=== PATIENT | female | born 1975 | race Caucasian/White ===

== ENCOUNTER 2017-12-23 11:42 | Emergency (ER) | payer MEDICAID, SELFPAY ==
[2017-12-23 11:43] VITALS: BP 97/67; PULSE 70; RESP 18; TEMP 36.6; O2SAT 98; BMI 28.3
--- NOTE | 2017-12-23 12:06 | ED.DCSUM_ITS ---
- ER Visit Summary Date of Service: 12/23/17 Chief Complaint: [Herpes outbreak] History of Present Illness: The patient is a 42 F [to the emergency department with complaint of a herpes outbreak that started about a week ago. Patient states that she has itching and painful lesions that peters when she urinates. Patient has had these multiple times in the past. Patient recently moved to [facility] and has no primary care physician in the area. Patient normally takes acyclovir and is requesting a prescription for acyclovir. As any fevers.] Physical Examination: [HEENT-PERRLA, EOMI. Cranial nerves II through XII grossly intact. TMs clear. Mucous membranes moist. No adenopathy. Cardiovascular-regular rate and rhythm without murmur or ectopy Lungs-clear to auscultation, chest wall stable without crepitus or subcu emphysema Abdomen-normoactive bowel sounds, soft, nontender, no rebound or rigidity, no peritoneal signs. exam-patient refused Extremities-intact ?4, normal range of motion, normal pulses, atraumatic] Test Results: [None indicated] Emergency Department Course and Treatment: [Patient will be given a prescription for acyclovir] Treatment Plan: [Treat with acyclovir and give referral to primary care physician merchandising execution manager as well as PROGRAM ANALYST on-call] Disposition: [Discharged home in stable condition] Impression: [Herpes recurrence ] This note was generated with Scrip-t dictation software. It may contain incorrect words, spelling, and punctuation that were not noted in review of the chart prior to signing ED Disposition - Plan for ED Patient: Chief Complaint: Med Refill Referrals: Care Physician,No Primary [Primary Care Provider] -
--- NOTE | 2017-12-23 12:06 | ED.DEP ---
ED Disposition - Plan for ED Patient: Chief Complaint: Med Refill Instructions: Med Refill, Herpes Prescriptions: Acyclovir 800 mg PO 5X/DAY #25 tab Referrals: Care Physician,No Primary [Primary Care Provider] - Josep Hager MD [STAFF PHYSICIAN] - Ellen Reyes MD [STAFF PHYSICIAN] - 3-5 Days
== END 2017-12-23 12:26 | disposition home or self-care (01) ==
LOC: ED 12:05
PROVIDERS: Emergency Provider Emergency Medicine
DX: A60.00 Herpesviral infection of urogenital system, unspecified (principal); J44.9 Chronic obstructive pulmonary disease, unspecified; M79.7 Fibromyalgia; Z72.0 Tobacco use
CPT/HCPCS: 99282

== ENCOUNTER 2018-01-13 01:13 | Emergency (ER) | payer MEDICAID, SELFPAY ==
[2018-01-13 01:14] VITALS: BP 105/73; PULSE 65; RESP 17; TEMP 36.8; O2SAT 100; BMI 27.4
[2018-01-13] MEDS: Meclizine 12.5 MG Tablet PO (01:45)
[2018-01-13] MEDS: Ondansetron ODT 4 MG Tablet PO (01:45)
[2018-01-13 01:47] VITALS: BP 89/60; PULSE 63; RESP 17; O2SAT 98
--- NOTE | 2018-01-13 01:48 | ED.DEP ---
ED Disposition - Plan for ED Patient: Chief Complaint: Med Refill Instructions: ED Vertigo Unspecified Prescriptions: Ondansetron [Zofran Odt] 4 mg PO Q8H PRN PRN #10 tablet PRN Reason: Nausea Meclizine HCl [Antivert] 25 mg PO 4X/DAY PRN PRN #30 tablet PRN Reason: Dizziness Referrals: Darline Brody MD [STAFF PHYSICIAN] - 5-7 Days
--- NOTE | 2018-01-13 01:49 | ED.DCSUM_ITS ---
- ER Visit Summary Date of Service: 01/13/18 Chief Complaint: [Vertigo] History of Present Illness: The patient is a 42 F [who presents the emergency department with vertigo. She states this is a chronic problem for her. She has been out of her meclizine and Zofran. She has been unable to obtain a new doctor since moving to the area. She states when she lies back or turns to her right side she gets room spinning. This is very normal for her. She has no other additional neurologic symptoms. No fevers or chills.] Physical Examination: [] Afebrile vital signs within acceptable limits WN WD NAD PERRL EOMI MMM NECK supple and nontender, no masses RRR no murmur rub or gallop, no peripheral edema, symmetric radial pulses CTAB no respiratory distress ABDOMEN is soft and nontender, normal bowel sounds, no distension, no rebound or guarding SKIN is warm and dry no rashes Alert and Oriented x3, CN II-XII in tact, no motor or sensory deficits, gait normal patient does complain of room spinning when lying back or turning to her right side. I am unable to assess for nystagmus as the patient closes her eyes and feels very nauseated No lymphadenopathy Test Results: [] Emergency Department Course and Treatment: [Patient was given meclizine and Zofran in the emergency department. She will be given a prescription for the same. She was given a referral to her primary care doctor and encouraged to call [facility] for referrals to the primary doctors. She was given precautions for which to return] Treatment Plan: [] Disposition: [Discharge] Impression: [Vertigo] This note was generated with Ini3 Digital dictation software. It may contain incorrect words, spelling, and punctuation that were not noted in review of the chart prior to signing ED Disposition - Plan for ED Patient: Chief Complaint: Med Refill Referrals: Care Physician,No Primary [Primary Care Provider] -
== END 2018-01-13 02:10 | disposition home or self-care (01) ==
PROVIDERS: Emergency Provider Emergency Medicine
DX: R42 Dizziness and giddiness (principal); R11.0 Nausea; J44.9 Chronic obstructive pulmonary disease, unspecified; E03.9 Hypothyroidism, unspecified; Z79.899 Other long term (current) drug therapy; Z72.0 Tobacco use
CPT/HCPCS: 99283

== ENCOUNTER → 2018-02-24 11:39 | Outpatient (CLI) | payer MEDICAID, SELFPAY ==
[2018-02-24 18:56] LABS: Chlamydia Trachomatis by PCR Negative (Negative); Neisserai gonorrhoeae by PCR Negative (Negative); Probe Check PASS; Sample Adequacy Control PASS; Specimen Processing Control PASS
== END ==
PROVIDERS: Visit Provider Obstetrics & Gynecology
DX: Z11.3 Encounter for screening for infections with a predominantly sexual mode of transmission (principal)
CPT/HCPCS: 87491; 87591

== ENCOUNTER 2018-04-15 17:30 | Emergency (ER) | payer MEDICAID, SELFPAY ==
--- NOTE | 2018-04-15 17:30 | DT_ITS ---
This patient was seen during an EMR downtime April 13, 2018 - April 20, 2018. This patient may have a combination of paper and electronic documentation or all paper documentation. All documentation is viewable within the e-chart portion of [employer] for each patient visit.
== END 2018-04-15 18:28 | disposition home or self-care (01) ==
LOC: ED 04-17 12:21
PROVIDERS: Emergency Provider Emergency Medicine
DX: J06.9 Acute upper respiratory infection, unspecified (principal); M35.00 Sjogren syndrome, unspecified; E06.3 Autoimmune thyroiditis; J44.9 Chronic obstructive pulmonary disease, unspecified; F17.210 Nicotine dependence, cigarettes, uncomplicated
CPT/HCPCS: 99282

== ENCOUNTER → 2018-04-21 15:32 | Outpatient (CLI) | payer MEDICAID, SELFPAY ==
[2018-04-21 17:38] LABS: Absolute Lymphocyte Count 3.51 X10^3/ul (0.83-4.51); Absolute Neutrophil Count 5.8 X10^3/uL (2.0-7.7); Basophil# 0.02 X10^3/uL; Basophil% 0.2 % (0-1); Eosinophil# 0.21 X10^3/uL; Hematocrit 42.9 % (37-47); Hemoglobin 14.2 g/dl (12.0-15.0); Lymphocyte # 3.51 X10^3/ul (4.0); Lymphocyte % 33.3 % (19-41); Mean Corp Hgb Conc 33.1 g/gl (32-36); Mean Corpuscular Volume 87.6 fL (81-99); Mean Platelet Vol. 10.2 fl (6.2-12.0); Monocyte# 0.91 X10^3/uL; Monocyte% 8.6 % (0-10); Neutrophil # 5.78 X10^3/uL (2.7-7.7); Platelet Count 273 K/mm3 (150-450); RBC Distribution Width CV 12.5 % (11.6-14.6); White Blood Count 10.5 K/mm3 (4.4-11.0)
[2018-04-21 17:44] LABS: POSITIVE COUNT NO; POSITIVE DIFFERENTIAL NO; POSITIVE MORPHOLOGY NO
[2018-04-21 18:18] LABS: ALB/GLOB Ratio 1.1 RATIO (0.9-2.4); AST(SGOT) 20 U/L (15-37); Alanine Aminotransfer ALT/SGPT 46 U/L (13-56); Albumin, Serum 3.8 g/dL (3.2-5.0); Alkaline Phosphatase 114 U/L (45-117); Anion Gap 9 (5-15); BUN 18 mg/dL (7-18); BUN/Creat Ratio 20.7 RATIO (10-20); Calcium,Total 8.6 mg/dL (8.5-10.1); Chloride 106 mmol/L (98-107); Creatinine, Serum 0.87 mg/dL (0.55-1.02); EST Glomerular Filtration Rate 76 mL/min (>60); Est Glom Filt Rate - Afr Amer 92 mL/min (>60); Globulin 3.5 g/dL (2.2-4.2); Glucose 90 mg/dL (74-106); Potassium 3.8 mmol/L (3.5-5.1); Protein, Total 7.3 g/dL (6.4-8.2); Sodium Level 144 mmol/L (136-145)
== END ==
PROVIDERS: Family Provider Family Medicine; PCP Family Medicine; Visit Provider Family Medicine
DX: K21.9 Gastro-esophageal reflux disease without esophagitis (principal); F17.200 Nicotine dependence, unspecified, uncomplicated
CPT/HCPCS: 36415; 80053; 85025

== ENCOUNTER 2018-04-21 23:41 | Emergency (ER) | payer MEDICAID, SELFPAY ==
[2018-04-21 23:42] VITALS: BP 102/75; PULSE 55; RESP 16; TEMP 36.1; O2SAT 100; BMI 29.4
--- NOTE | 2018-04-22 00:31 | ED.VISSUMM ---
- ER Visit Summary Date of Service: 04/22/18 Chief Complaint: Right groin pain History of Present Illness: The patient is a 42 F presenting for evaluation secondary to right groin pain. Patient states that today just prior to arrival she was going from a seated to standing position and felt a sudden onset of severe pain in her right groin. She describes this as a sharp stabbing throbbing type pain is worse with movement and with pressure. No radiation of the pain. No numbness or weakness associated with this. No prior similar symptoms in the past. No radiation to the back, no bowel or bladder incontinence, she denies any urinary symptoms such as dysuria or hematuria denies any abdominal pain associated with this. Review of systems otherwise negative. Physical Examination: Well-nourished female no acute distress. Vital signs within normal limits. Head normocephalic. Moist mucous membranes. Neck supple. Heart regular rate and rhythm lungs sounds clear. Abdomen soft nontender nondistended normal bowel sounds no evidence of palpable abdominal masses or pulsatile mass. Lower extremity exam shows tenderness palpation in the right groin region with soft compartments throughout the thigh and calf. 2+ DP and PT pulses that are bilaterally symmetric. There is pain with active range of motion of the hip and groin, but no pain with passive range of motion. Normal sensation distally. Test Results: None indicated Emergency Department Course and Treatment: Patient presented for evaluation secondary to groin pain after getting up off the couch. Her physical exam does not show any evidence of compartment syndrome, neurologic compromise, or vascular compromise. Her presentation seems most consistent with a groin strain. Patient be treated with Naprosyn and Flexeril and stretching exercises. Disposition: Discharge Impression: 1. Right groin strain This note was generated with [employer] dictation software. It may contain incorrect words, spelling, and punctuation that were not noted in review of the chart prior to signing ED Disposition - Plan for ED Patient: Disposition: Home or Assisted Living Chief Complaint: Other, Pain/Inj Diagnosis: Strain of right inguinal muscle Instructions: ED Strain Groin Prescriptions: Naproxen [Naprosyn] 500 mg PO BID PRN #20 tab Cyclobenzaprine [Flexeril] 10 mg PO TID PRN #20 tab PRN Reason: Muscle Spasm Referrals: Micah Desai MD [Primary Care Provider] - 1 Week if not improving
--- NOTE | 2018-04-22 00:37 | ED.DCSUM_ITS ---
- ER Visit Summary Date of Service: 04/22/18 Chief Complaint: Right groin pain History of Present Illness: The patient is a 42 F presenting for evaluation secondary to right groin pain. Patient states that today just prior to arrival she was going from a seated to standing position and felt a sudden onset of severe pain in her right groin. She describes this as a sharp stabbing throbbing type pain is worse with movement and with pressure. No radiation of the pain. No numbness or weakness associated with this. No prior similar symptoms in the past. No radiation to the back, no bowel or bladder incontinence, she denies any urinary symptoms such as dysuria or hematuria denies any abdominal pain associated with this. Review of systems otherwise negative. Physical Examination: Well-nourished female no acute distress. Vital signs within normal limits. Head normocephalic. Moist mucous membranes. Neck supple. Heart regular rate and rhythm lungs sounds clear. Abdomen soft nontender nondistended normal bowel sounds no evidence of palpable abdominal masses or pulsatile mass. Lower extremity exam shows tenderness palpation in the right groin region with soft compartments throughout the thigh and calf. 2 + DP and PT pulses that are bilaterally symmetric. There is pain with active range of motion of the hip and groin, but no pain with passive range of motion. Normal sensation distally. Test Results: None indicated Emergency Department Course and Treatment: Patient presented for evaluation secondary to groin pain after getting up off the couch. Her physical exam does not show any evidence of compartment syndrome, neurologic compromise, or vascular compromise. Her presentation seems most consistent with a groin strain. Patient be treated with Naprosyn and Flexeril and stretching exercises. Disposition: Discharge Impression: 1. Right groin strain This note was generated with [employer] 1 dictation software. It may contain incorrect words, spelling, and punctuation that were not noted in review of the chart prior to signing ED Disposition - Plan for ED Patient: Disposition: Home or Assisted Living Chief Complaint: Other, Pain/Inj Diagnosis: Strain of right inguinal muscle Instructions: ED Strain Groin Prescriptions: Naproxen [Naprosyn] 500 mg PO BID PRN #20 tab Cyclobenzaprine [Flexeril] 10 mg PO TID PRN #20 tab PRN Reason: Muscle Spasm Referrals: Micah Desai MD [Primary Care Provider] - 1 Week if not improving
[2018-04-22] MEDS: Naproxen 500 MG Tablet PO (01:00)
[2018-04-22 01:01] VITALS: RESP 18
--- NOTE | 2018-04-22 01:01 | NURSING ---
PT WAS WANDERING THE HALLS WAITING TO GET MEDICATION WAS UNABLE TO SCAN.
== END 2018-04-22 01:02 | disposition home or self-care (01) ==
LOC: ED 04-22 00:48
PROVIDERS: Emergency Provider Emergency Medicine; Family Provider Family Medicine; PCP Family Medicine
DX: S39.011A Strain of muscle, fascia and tendon of abdomen, initial encounter (principal); X58.XXXA Exposure to other specified factors, initial encounter; Y93.89 Activity, other specified; Y92.9 Unspecified place or not applicable; K21.9 Gastro-esophageal reflux disease without esophagitis; F17.200 Nicotine dependence, unspecified, uncomplicated
CPT/HCPCS: 36415; 80053; 85025; 99283

== ENCOUNTER 2018-06-28 19:16 | Emergency (ER) | payer MEDICAID, SELFPAY ==
[2018-06-28 19:17] VITALS: BP 90/39; PULSE 77; RESP 17; TEMP 36.8; O2SAT 97; BMI 29.8
== END 2018-06-28 20:08 | disposition left against medical advice (07) ==
PROVIDERS: Emergency Provider Emergency Medicine; Family Provider Family Medicine; PCP Family Medicine
DX: R69 Illness, unspecified (principal); Z53.21 Procedure and treatment not carried out due to patient leaving prior to being seen by health care provider
CPT/HCPCS: 99281; J7030; A4216

== ENCOUNTER 2018-06-30 10:56 | Emergency (ER) | payer MEDICAID, SELFPAY ==
[2018-06-30 10:57] VITALS: BP 98/72; PULSE 65; RESP 18; TEMP 36.8; O2SAT 97; BMI 28.6
[2018-06-30 11:28] LABS: Bacteria 0 SEEN /hpf (None Seen); Mucous, Urine 0 SEEN /hpf (<or=2+); Red Blood Cells-Urine 0 SEEN /hpf (0-5); Squamous Epithelial Cells - UA 0 SEEN /hpf (5-10)
[2018-06-30 11:31] LABS: Color, Urine Yellow (Yellow); Glucose, Dipstick Normal (Normal); Ketone-Dipstick Negative (Negative); Leukocyte Esterase-Dipstick 100 /ul (Negative); Nitrite-Dipstick Positive (Negative); Occult Blood-Urine 150 /ul (Negative); Protein-Dipstick 100 mg/dl (Negative); Urine Bilirubin Dipstick Negative (Negative); Urine Clarity Sl. Cloudy (Clear); Urine Urobilinogen 1 mg/dl (Normal)
[2018-06-30 11:38] LABS: White Blood Cells 25-50 SEEN /hpf (0-5)
--- NOTE | 2018-06-30 12:22 | ED.VISSUMM ---
- ER Visit Summary Date of Service: 06/30/18 Chief Complaint: Urinary symptoms History of Present Illness: The patient is a 42 F who presents to the emergency arm with with dysuria, frequency, urgency and hematuria. Onset of symptoms Friday. She denies fever, chills night sweats. She denies nausea or vomiting. She denies flank or low back pain. She denies abdominal pain. She has not had a recent urinary tract infection. She has no other complaints. Physical Examination: Vital signs are normal. HEENT is unremarkable. Heart is regular without murmur, gallop or rub. S1 and S2 are normal. Lungs are clear to auscultation with good movement of air bilaterally. Abdominal exam is remarkable for discomfort suprapubic region with deep palpation only. There is no CVA tenderness noted. There is no dermatologic lesions noted. She is alert and oriented with a nonfocal neurologic exam. Test Results: Urine reveals leukoesterase, nitrites and blood. Microscopic reveals pyuria without bacteria. Emergency Department Course and Treatment: Urine was obtained. Urine is consistent with infection. Since she is having frequency may not have evidence of bacteria. She received a dose of Macrobid and Azo in the department and given prescription for Macrobid and Pyridium. Treatment Plan: Treat for acute cystitis she was treated with Macrobid since she has angioedema with ciprofloxacin and Bactrim Disposition: Discharged home with prescriptions for Macrobid and Pyridium Impression: Acute cystitis This note was generated with Choose Digital dictation software. It may contain incorrect words, spelling, and punctuation that were not noted in review of the chart prior to signing ED Disposition - Plan for ED Patient: Disposition: Home or Assisted Living Chief Complaint: Complaint Instructions: ED UTI Cystitis Female Prescriptions: Nitrofurantoin Macrocrystals [Macrobid] 100 mg PO Q12 #10 cap Phenazopyridine HCl [Pyridium] 200 mg PO TID #10 tab Referrals: Micah Desai MD [Primary Care Provider] - 3-5 Days if not improving
[2018-06-30] MEDS: Phenazopyridine 95 MG Tablet 190 MG PO (12:32)
[2018-06-30] MEDS: Nitrofurantoin Macrocrystals 100 MG Capsule PO (12:32)
[2018-06-30 12:35] VITALS: BP 138/76; PULSE 82; RESP 16; O2SAT 98
== END 2018-06-30 12:36 | disposition home or self-care (01) ==
PROVIDERS: Emergency Provider Emergency Medicine; Family Provider Family Medicine; PCP Family Medicine
DX: N30.01 Acute cystitis with hematuria (principal); B96.89 Other specified bacterial agents as the cause of diseases classified elsewhere; E07.9 Disorder of thyroid, unspecified; J44.9 Chronic obstructive pulmonary disease, unspecified; Z72.0 Tobacco use; Z79.899 Other long term (current) drug therapy
CPT/HCPCS: 81001; 99283

== ENCOUNTER → 2018-07-02 17:18 | Outpatient (CLI) | payer MEDICAID, SELFPAY | PROVIDERS: Family Provider Family Medicine; PCP Family Medicine; Visit Provider Otolaryngology | DX: J32.9 Chronic sinusitis, unspecified (principal) | CPT/HCPCS: 70486 ==

== ENCOUNTER 2018-07-03 01:23 | Emergency (ER) | payer MEDICAID, SELFPAY ==
[2018-07-03 01:24] VITALS: BP 102/72; PULSE 71; RESP 16; TEMP 36.7; O2SAT 99; BMI 29.2
--- NOTE | 2018-07-03 02:17 | ED.VISSUMM ---
- ER Visit Summary Date of Service: 07/03/18 Chief Complaint: [Injury left hand] History of Present Illness: The patient is a 42 F [presents to the emergency department complaining of injury to her left hand that occurred this evening approximately 10:30 PM. Patient states she was coming out of a fun house when she fell and landed on her left hand. Patient complains of pain over the ring finger. Patient at times with certain pressure on her hand will have pain that radiates to the base of the palm. Patient complains of some numbness to the ring finger and lateral aspect of the hand. Patient is right-hand dominant.] Physical Examination: [Left hand-patient has tenderness over the DIP joint of the ring finger without obvious ecchymosis, bruising, or deformity. Patient has normal range of motion flexion extension of all digits. Mild diffuse tenderness over the fourth and fifth metacarpals. He is neurovascular intact.] Test Results: [X-rays of the left hand obtained showed no fractures but did show some arthritic changes of the DIP joint of the left ring finger.] Emergency Department Course and Treatment: [Patient did not want anything for pain in the department] Treatment Plan: [Patient advised to follow-up with primary care physician in 5-7 days. Patient refused Christopher wrap Disposition: [Discharged home in stable condition] Impression: [Left hand sprain] This note was generated with [employer] dictation software. It may contain incorrect words, spelling, and punctuation that were not noted in review of the chart prior to signing ED Disposition - Plan for ED Patient: Chief Complaint: Upper Extremity Injury Referrals: Micah Desai MD [Primary Care Provider] -
--- NOTE | 2018-07-03 02:19 | ED.DEP ---
ED Disposition - Plan for ED Patient: Chief Complaint: Upper Extremity Injury Instructions: ED Sprain Finger, ED Sprain Hand Referrals: Micah Desai MD [Primary Care Provider] - 5-7 Days
== END 2018-07-03 02:29 | disposition home or self-care (01) ==
LOC: ED 01:55
PROVIDERS: Emergency Provider Emergency Medicine; Family Provider Family Medicine; PCP Family Medicine
DX: S63.92XA Sprain of unspecified part of left wrist and hand, initial encounter (principal); W18.39XA Other fall on same level, initial encounter; Y93.89 Activity, other specified; Y92.89 Other specified places as the place of occurrence of the external cause; Y99.8 Other external cause status; J44.9 Chronic obstructive pulmonary disease, unspecified; Z79.899 Other long term (current) drug therapy; Z72.0 Tobacco use
CPT/HCPCS: 73130; 99282

== ENCOUNTER → 2018-09-01 10:09 | Outpatient (CLI) | payer MEDICAID, SELFPAY | PROVIDERS: Family Provider Family Medicine; PCP Family Medicine; Visit Provider Otolaryngology | DX: Z01.818 Encounter for other preprocedural examination (principal) ==

== ENCOUNTER 2018-09-08 07:19 | Day surgery (SDC) | payer MEDICAID, SELFPAY ==
--- NOTE | 2018-09-02 13:59 | RAD_ITS ---
STUDY: X-RAY CHEST REASON FOR EXAM: Female, 43 years old. Preop. Cough. Bronchitis. TECHNIQUE: PA and lateral views. COMPARISON: None. FINDINGS: Calcified granuloma in the left peripheral lower lobe overlying the eighth posterior rib. No suspicious pulmonary nodules or infiltrates. There is no demonstrated pleural abnormality. Normal size heart. Normal mediastinum and deepak. Normal visualized pulmonary arteries. Normal visualized aortic arch and descending thoracic aorta. Normal visualized thoracic spine. Old fracture deformity of the left posterior ninth rib. There is no demonstrated abnormality of the visualized soft tissue structures of the upper abdomen. RAD/Chest PA and Lateral IMPRESSION: 1. No acute cardiopulmonary pathology. 2. Old fracture deformity of the left posterior ninth rib. 3. Mild anterior wedging of the superior endplates of T6 down to T12 vertebral bodies are presumably developmental or from remote injury. Electronically Signed: Dev Heard MD at 14:27 EDT , Service support ,
--- NOTE | 2018-09-02 14:04 | EKG12_ITS ---
Test Reason : PRE-OP Blood Pressure : / mmHG Vent. Rate : 059 BPM Atrial Rate : 059 BPM P-R Int : 150 ms QRS Dur : 084 ms QT Int : 402 ms P-R-T Axes : 059 050 055 degrees QTc Int : 397 ms Sinus bradycardia Low voltage QRS Borderline ECG Confirmed by DIMPLE GAMBOA, MADISON ([id number]), society editor FRANKI CONN ([id number] on 09/04/2018 1:34:38 PM Referred By: Harpreet Raines Confirmed By:MADISON MUSA MD
[2018-09-02 15:59] LABS: Hematocrit 46.8 % (37-47); Hemoglobin 15.6 g/dl (12.0-15.0); Mean Corp Hgb Conc 33.3 g/gl (32-36); Mean Corpuscular Hgb 29.7 pg (27.0-32.0); Mean Platelet Vol. 10.6 fl (6.2-12.0); Platelet Count 260 K/mm3 (150-450); RBC Distribution Width CV 12.9 % (11.6-14.6); RBC Distribution Width SD 42.2 fl (35.1-43.9); Red Blood Count 5.26 M/mm3 (4.2-5.4); White Blood Count 7.6 K/mm3 (4.4-11.0)
[2018-09-02 16:01] LABS: Scan Indicated on CBC? Y/N NO
[2018-09-02 16:34] LABS: Anion Gap 5 (5-15); BUN 16 mg/dL (7-18); BUN/Creat Ratio 20.1 RATIO (10-20); Calcium,Total 8.7 mg/dL (8.5-10.1); Chloride 108 mmol/L (98-107); EST Glomerular Filtration Rate 85 mL/min (>60); Est Glom Filt Rate - Afr Amer 102 mL/min (>60); Glucose 67 mg/dL (74-106); Potassium 4.2 mmol/L (3.5-5.1); Sodium Level 140 mmol/L (136-145); Thyroid Stim Hormone (TSH) 1.12 uIU/mL (0.358-3.74)
[2018-09-08] VITALS (7 sets, daily range): BP systolic 85–100; BP diastolic 58–76; PULSE 49–70; RESP 12–18; TEMP 36.3–36.4; O2SAT 93–98
--- NOTE | 2018-09-08 08:01 | DCINST_ITS ---
You will use the following diet at home:: No restrictions Discharge Activity: Return to Normal Activity, May not drive while taking narco tic pain medications. Call your doctor if your incision/area has: Sudden Increased Bleeding Additional Dressing/Incision Instructions:: place mupirocin ointment on incision and in nostrils twice daily. use nasal saline spray in both nostrils 5 times daily. sleep with head of bed elevated. keep the bridge of your nose dry until the morning of your follow up appointment, then get it wet in the shower so it comes off easily in clinic. Allergies/Adverse Reactions: Allergies cephalexin [From Keflex] Allergy (Verified 09/01/18 09:35) Swelling haloperidol [From Haldol] Allergy (Verified 09/01/18 09:35) Other ketorolac [From Toradol] Allergy (Verified 09/01/18 09:35) Swelling quetiapine [From Seroquel] Allergy (Verified 09/01/18 09:35) Other sertraline [From Zoloft] Allergy (Verified 09/01/18 09:35) Other Sulfa (Sulfonamide Antibiotics) Allergy (Verified 09/01/18 09:35) Swelling trazodone Allergy (Verified 09/01/18 09:35) Other zolpidem [From Ambien] Allergy (Verified 09/01/18 09:35) Other DID NOT WANT TO SHARE INFO Adverse Reaction (Uncoded 06/30/18 10:59) Other Medications to take at Discharge Diclofenac Sodium [Voltaren-Xr] 100 mg PO DAILY #30 tab.er.24h 11/11/17 Levothyroxine [Synthroid] 75 mcg PO DAILY 11/11/17 Albuterol IH (ProAir) [Proair Hfa] 1 puff INHALATION PRN PRN 12/23/17 Pregabalin [Lyrica] 100 mg PO QHS 12/23/17 Acyclovir 800 mg PO DAILY 09/01/18 Clindamycin [Cleocin] 150 mg PO TID #21 cap 09/08/18 Hydrocodone/Acetaminophen [[place] 5-325 Tablet] 1 ea PO Q6H 5 Days #20 tab 09/08/18 The following prescriptions were given: Hydrocodone/Acetaminophen [[place] 5-325 Tablet] 1 ea PO Q6H 5 Days #20 tab Clindamycin [Cleocin] 150 mg PO TID #21 cap Primary Care Physician: Micah Desai MD [Primary Care Provider] - Test Results: Test results from this visit will be discussed in further detail at your follow- up appointment, if applicable. Please Follow Up With: Harpreet Raines MD When: 1 week
--- NOTE | 2018-09-08 08:07 | PCM.OPRPT ---
Problem List (1) Nasal congestion Status: Chronic (2) Nasal septal deviation Status: Chronic (3) Nasal turbinate hypertrophy Status: Chronic Report of Operation Date of Procedure: 09/08/18 Pre-Operative Diagnosis: 1. eustachian tube dysfunction. 2. chronic serous otitis media. 3. nasal congestion. 4. nasal septal deviation. 5. turbinate hypertrophy. 6. internal nasal valve collapse Post-Operative Diagnosis: 1. eustachian tube dysfunction. 2. chronic serous otitis media. 3. nasal congestion. 4. nasal septal deviation. 5. turbinate hypertrophy. 6. internal nasal valve collapse Surgery/Procedure Performed:: 1. placement of pressure equalization tubes, right and left. 2. eustachian tube dilation, right and left. 3. open septorhinoplasty with anterior septal reconstruction. 4. correction internal nasal valve dysfuction, right and left. 5. submucous resection inferior turbinates, right and left Type of Anesthesia:: General Description of Procedure: on the day of the procedure, after appropriate informed consent was obtained, the patient was brought to the operating room and placed in supine position on the operating table. he was placed under general endotracheal anesthesia by the anesthesiologist. the endotracheal tube was secured, the eyes were taped. the table was rotated 90 degrees toward the surgeon. the nose was injected with lidocaine/epinephrine. the face was prepped and draped in sterile fashion. an inverted V columellar incision was made with a [place] blade. this traversed into right and left marginal incisions with an iris scissor and three point retraction. the lower lateral cartilages were skeletonized. the scroll region was skeletonized as well with an iris scizzor as were the right and left upper lateral cartilages. the anterior septal angle was found by lateralizing the lower lateral cartilages. a submucoperichondrial plane was developed on the right then the left with a ester elevator. this was taken posteriorly to the bony/cartilaginous junction and inferiorly to the maxillary crest. the right and left upper lateral cartilages were disarticulated from the septum using a #15 blade. a 1cm strut of septal cartilage was preserved off of the keystone area and the remainder of the septum was removed with a ester elevator. of note, the septum was incredibly fragmented and fractured. a giovani-septum was re-fashioned from the septal cartilage this was saved for future use. the head of the right and left inferior turbinates were injected with lidocaine/epinephrine. the head of the left inferior turbinate was incised with a #15 blade, dissected submucosally with a ester elevator, reduced using suction electrocautery and outfractured using a Boies elevator. the head of the right inferior turbinate was incised with a #15 blade, dissected submucosally with a ester elevator, reduced using suction electrocautery and outfractured using a Boies elevator. the cartilage and were placed as an internal asphalt spreader graft on the left between the left upper lateral cartilage and nasal septum; this was sutured into place using 4-0 PDS. it was also anchored to the periosteum of the maxillary crest with 4-0 PDS. an additional 1cm by 2mm internal asphalt spreader graft was placed on the patient's right side and secured with 4-0 PDS. Multiple quilting sutures with 4-0 chromic were used to reapproximate the septum, several incorporating the anterior septal reconstruction. the inverted V columellar incision was closed with a 7-0 vicryl. the latera trocar was loaded in the usual fashion. using the pre-marked landmarks as a guide, the trocar was inserted in the right nasal vestibule and deep to the skin and soft tissue envelope. the implant was deployed fully. the latera trocar was loaded in the usual fashion. using the pre-marked landmarks as a guide, the trocar was inserted in the left nasal vestibule and deep to the skin and soft tissue envelope. the implant was deployed fully. the left ear was examined with the binocular operating microscope. a speculum was placed. the tympanic membrane was visualized in its entirety and found to be intact. a radial myringotomy was made and a quinn tympanostomy tube was place. floxin otic drops were placed. the left ear was examined with the binocular operating microscope. a speculum was placed. the tympanic membrane was visualized in its entirety and found to be intact. a radial myringotomy was made and a quinn tympanostomy tube was place. floxin otic drops were placed. a zero degree endoscope was placed into the right nasal cavity. the acclarent AERA system was advanced into the eustachian tube orifice with no resistance until a soft stop. the balloon was inflated to 12 drea for 2 minutes and retracted. a zero degree endoscope was placed into the left nasal cavity. the acclarent AERA system was advanced into the eustachian tube orifice with no resistance until a soft stop. the balloon was inflated to 12 drea for 2 minutes and retracted. colon splints were sutured into place and a dorsal nasal splint was placed. the patient was awoken from anesthesia and transferred to the PACU in stable condition. Grafts/Implants Used: latera - Admit VTE Documentation VTE Mechan Device Prophylaxis: SCD's VTE Pharm Prophylaxis ordered?: No Reason prophylaxis not ordered:: Treatment Not Indicated
--- NOTE | 2018-09-08 08:12 | OP.PCM_ITS ---
Problem List (1) Nasal congestion Status: Chronic (2) Nasal septal deviation Status: Chronic (3) Nasal turbinate hypertrophy Status: Chronic Report of Operation Date of Procedure: 09/08/18 Pre-Operative Diagnosis: 1. eustachian tube dysfunction. 2. chronic serous otitis media. 3. nasal congestion. 4. nasal septal deviation. 5. turbinate hypertrophy. 6. internal nasal valve collapse Post-Operative Diagnosis: 1. eustachian tube dysfunction. 2. chronic serous otitis media. 3. nasal congestion. 4. nasal septal deviation. 5. turbinate hypertrophy. 6. internal nasal valve collapse Surgery/Procedure Performed:: 1. placement of pressure equalization tubes, right and left. 2. eustachian tube dilation, right and left. 3. open septorhinoplasty with anterior septal reconstruction. 4. correction internal nasal valve dysfuction, right and left. 5. submucous resection inferior turbinates, right and left Type of Anesthesia:: General Description of Procedure: on the day of the procedure, after appropriate informed consent was obtained, the patient was brought to the operating room and placed in supine position on the operating table. he was placed under general endotracheal anesthesia by the anesthesiologist. the endotracheal tube was secured, the eyes were taped. the table was rotated 90 degrees toward the surgeon. the nose was injected with lidocaine/epinephrine. the face was prepped and draped in sterile fashion. an inverted V columellar incision was made with a egegik blade. this traversed into right and left marginal incisions with an iris scissor and three point retraction. the lower lateral cartilages were skeletonized. the scroll region was skeletonized as well with an iris scizzor as were the right and left upper lateral cartilages. the anterior septal angle was found by lateralizing the lower lateral cartilages. a submucoperichondrial plane was developed on the right then the left with a ester elevator. this was taken posteriorly to the bony/cartilaginous junction and inferiorly to the maxillary crest. the right and left upper lateral cartilages were disarticulated from the septum using a #15 blade. a 1cm strut of septal cartilage was preserved off of the keystone area and the remainder of the septum was removed with a ester elevator. of note, the septum was incredibly fragmented and fractured. a giovani-septum was re-fashioned from the septal cartilage this was saved for future use. the head of the right and left inferior turbinates were injected with lidocaine/epinephrine. the head of the left inferior turbinate was incised with a #15 blade, dissected submucosally with a ester elevator, reduced using s uction electrocautery and outfractured using a Boies elevator. the head of the right inferior turbinate was incised with a #15 blade, dissected submucosally with a ester elevator, reduced using suction electrocautery and outfractured using a Boies elevator. the cartilage and were placed as an internal vibration technician graft on the left between the left upper lateral cartilage and nasal septum; this was sutured into place using 4-0 PDS. it was also anchored to the periosteum of the maxillary crest with 4-0 PDS. an additional 1cm by 2mm internal vibration technician graft was placed on the patient's right side and secured with 4-0 PDS. Multiple quilting sutures with 4-0 chromic were used to reapproximate the septum, several incorporating the anterior septal reconstruction. the inverted V columellar incision was closed with a 7-0 vicryl. the latera trocar was loaded in the usual fashion. using the pre-marked landmarks as a guide, the trocar was inserted in the right nasal vestibule and deep to the skin and soft tissue envelope. the implant was deployed fully. the latera trocar was loaded in the usual fashion. using the pre-marked landmarks as a guide, the trocar was inserted in the left nasal vestibule and deep to the skin and soft tissue envelope. the implant was deployed fully. the left ear was examined with the binocular operating microscope. a speculum was placed. the tympanic membrane was visualized in its entirety and found to be intact. a radial myringotomy was made and a quinn tympanostomy tube was place. floxin otic drops were placed. the left ear was examined with the binocular operating microscope. a speculum was placed. the tympanic membrane was visualized in its entirety and found to be intact. a radial myringotomy was made and a quinn tympanostomy tube was place. floxin otic drops were placed. a zero degree endoscope was placed into the right nasal cavity. the acclarent AERA system was advanced into the eustachian tube orifice with no resistance un til a soft stop. the balloon was inflated to 12 drea for 2 minutes and retracted. a zero degree endoscope was placed into the left nasal cavity. the acclarent AERA system was advanced into the eustachian tube orifice with no resistance until a soft stop. the balloon was inflated to 12 drea for 2 minutes and retracted. colon splints were sutured into place and a dorsal nasal splint was placed. the patient was awoken from anesthesia and transferred to the PACU in stable condition. Grafts/Implants Used: latera - Admit VTE Documentation VTE Mechan Device Prophylaxis: SCD's VTE Pharm Prophylaxis ordered?: No Reason prophylaxis not ordered:: Treatment Not Indicated
[2018-09-08] MEDS: Ciprofloxacin 0.3% 2.5ml Bottle 1 DRP (08:17)
[2018-09-08] MEDS: Oxymetazoline 0.05% 1 SPRAY SPRAY.BTL 15 SPRAY (09:49)
[2018-09-08] MEDS: Mupirocin Ointment 22gm Tube 1 APPLIC (09:50)
== END 2018-09-08 13:19 | disposition home or self-care (01) ==
LOC: SDC 07:20 → AC 07:20
PROVIDERS: Family Provider Family Medicine; PCP Family Medicine; Referring Provider Otolaryngology; Visit Provider Otolaryngology
PROC: (CPT 20912; principal; 2018-09-08 07:45)
PROC: (CPT 69799; 2018-09-08 07:45)
DX: H65.23 Chronic serous otitis media, bilateral (principal); H69.93 Unspecified Eustachian tube disorder, bilateral; J34.2 Deviated nasal septum; J34.3 Hypertrophy of nasal turbinates; J34.89 Other specified disorders of nose and nasal sinuses; K21.9 Gastro-esophageal reflux disease without esophagitis; B18.2 Chronic viral hepatitis C; M54.5 Low back pain; J43.9 Emphysema, unspecified; J45.909 Unspecified asthma, uncomplicated; F17.200 Nicotine dependence, unspecified, uncomplicated; Z79.891 Long term (current) use of opiate analgesic; Z79.899 Other long term (current) drug therapy
CPT/HCPCS: 00126; 20912; 30140; 30420; 30465; 69436; C9745; 36415; 71046; 80048; 84443; 85027; 93005; J7120; J2405

== ENCOUNTER → 2018-09-09 20:30 | Outpatient (CLI) | payer MEDICAID, SELFPAY ==
[2018-09-09 22:53] LABS: Chlamydia Trachomatis by PCR Negative (Negative); Neisserai gonorrhoeae by PCR Negative (Negative); Probe Check PASS; Sample Adequacy Control PASS; Specimen Processing Control PASS
== END ==
PROVIDERS: Family Provider Family Medicine; PCP Family Medicine; Referring Provider Obstetrics & Gynecology; Visit Provider Obstetrics & Gynecology
DX: Z11.3 Encounter for screening for infections with a predominantly sexual mode of transmission (principal)
CPT/HCPCS: 87491; 87591

== ENCOUNTER → 2019-01-04 10:23 | Outpatient (CLI) | payer MEDICAID, SELFPAY ==
[2018-12-15 09:17] VITALS: BMI 28.3
--- NOTE | 2019-01-04 10:24 | CT_ITS ---
STUDY: CT CHEST/THORAX WITHOUT CONTRAST REASON FOR EXAM: Female, 43 years old. COPD, asthma, emphysema. Calcified granuloma, possible nodule? RADIATION DOSAGE (If Supplied By Facility): CTDIvol = ( 11.67 ) mGy, DLP = ( 411.32 ) mGycm TECHNIQUE: Transaxial imaging was performed without the administration of intravenous contrast material. Multiplanar coronal and sagittal images were reformatted. Individualized dose optimization techniques were used for this CT. COMPARISON: PA and lateral chest x-ray September 02, 2018. FINDINGS: Centrilobular emphysematous changes are greater in the upper lung zones. 8 mm calcified granuloma seen in the lateral periphery of the left upper lobe at the mid chest. There is no demonstrated pleural abnormality. Normal heart and pericardium. There is a cluster of calcified lymph nodes in the subcarinal tissues, a lesser number of calcified nodes in the left hilar regions, and minimally calcified subcentimeter lymph nodes in the aorticopulmonary window. Normal right hilar region. Normal unenhanced pulmonary arteries. Normal aorta arch and descending thoracic aorta. There are multi-level mild degenerative changes of the thoracic spine. There is no demonstrated abnormality of the visualized upper abdomen. CT/Chest without Contrast IMPRESSION: Findings of old left calcified granulomatous disease, as described. No acute cardiopulmonary pathology. Electronically Signed: Patrick Aguilar MD at 18:57 EST , Service support ,
[2019-01-04 11:09] VITALS: PULSE 77; PULSE 80; PULSE 87; PULSE 90; PULSE 91; PULSE 92; PULSE 93; PULSE 94; O2SAT 95; O2SAT 97; O2SAT 98
--- NOTE | 2019-01-05 14:22 | PCM.PSN.6M ---
PSN 6 Minute Walk Test - 6 Minute Walk Test 6 Minute Walk Test: 6 Minute Walk Test PSN:6-Minute Walk Test Start: 01/04/19 11:08 Freq: Status: Active Protocol: [id number] Document 01/04/19 11:09 MILO (Rec: 01/04/19 11:14 MILO [id number]) 6 Minute Walk Test Date Performed 01/04/19 Time Performed 10:45 Height 5 ft 2 in Weight: 156 lb Weight in Pounds 156.[address]: Troy Melgoza Assistive device used: None Pre-test Oxygen Delivery Method Room Air Pulse Ox (%) 98 Pulse Rate (60-100 beats/min) 77 Dyspnea Maci Scale (0-10) 1 Exertion Maci Scale (6-20) 6 1st minute Oxygen Delivery Method Room Air Pulse Ox (%) 97 Pulse Rate (60-100 beats/min) 87 2nd minute Oxygen Delivery Method Room Air Pulse Ox (%) 95 Pulse Rate (60-100 beats/min) 90 3rd minute Oxygen Delivery Method Room Air Pulse Ox (%) 97 Pulse Rate (60-100 beats/min) 91 4th minute Oxygen Delivery Method Room Air Pulse Ox (%) 95 Pulse Rate (60-100 beats/min) 92 5th minute Oxygen Delivery Method Room Air Pulse Ox (%) 97 Pulse Rate (60-100 beats/min) 94 6th minute Oxygen Delivery Method Room Air Pulse Ox (%) 97 Pulse Rate (60-100 beats/min) 93 Dyspnea Maci Scale (0-10) 4 Exertion Maci Scale (6-20) 12 Post-test Oxygen Delivery Method Room Air Pulse Ox (%) 98 Pulse Rate (60-100 beats/min) 80 Full Laps Walked 18 Partial Lap, Number of Tiles Walked 0 Total Distance Walked (ft) 1062 - Interpretation Interpretation: The patient ambulated 1062 feet over the course of 6 minutes beginning on room air without assistive devices or breaks. Pretesting oxygen saturation was noted to be 98% on room air. With ambulation, the claude oxygen saturation was 95%. There was no significant exertional oxygen desaturation. - Recommendations Recommendations: There is no indication for the use of supplemental oxygen at this time.
== END ==
PROVIDERS: Family Provider Family Medicine; PCP Family Medicine; Referring Provider Internal Medicine Critical Care Medicine; Visit Provider Internal Medicine Critical Care Medicine
DX: J44.9 Chronic obstructive pulmonary disease, unspecified (principal); R91.1 Solitary pulmonary nodule
CPT/HCPCS: 71250; 94618

== ENCOUNTER → 2019-01-07 10:59 | Outpatient (CLI) | payer MEDICAID, SELFPAY ==
[2018-12-15 09:17] VITALS: BMI 28.3
[2019-01-07 08:01] VITALS: BMI 28.3
--- NOTE | 2019-01-07 13:47 | PFT ---
INTRODUCTION: The patient is a 43-year-old female that presents for pulmonary function studies secondary to a diagnosis of COPD. Respiratory therapy reports good patient effort. Bronchodilators were used during testing. INTERPRETATION: Forced expiration spirometry demonstrates the presence of a mild large airways obstructive ventilatory defect. There was no significant response to aerosolized bronchodilators, based upon strict ATS criteria. Spirogram's are of good quality and do not plateau indicating slow emptying of the lungs. Body plethysmography was performed and revealed an elevated TLC and RV, indicative of underlying hyperinflation and air trapping. Diffusing capacity by single breath CO is mildly reduced as well. IMPRESSION: The pulmonary function studies demonstrate the presence of an irreversible mild large airways obstructive ventilatory defect with associated hyperinflation, air trapping and reduction in diffusing capacity.
== END ==
PROVIDERS: Family Provider Family Medicine; PCP Family Medicine; Referring Provider Internal Medicine Critical Care Medicine; Visit Provider Internal Medicine Critical Care Medicine
DX: J44.9 Chronic obstructive pulmonary disease, unspecified (principal)
CPT/HCPCS: 94060; 94726; 94729